=== PATIENT | female | born 1950 | race American Indian/Alaskan Native ===

== ENCOUNTER 2017-02-13 14:35 | Outpatient (CLI) | payer OTHER ==
--- NOTE | 2017-02-13 15:52 | Nuclear Medicine Report ---
Ventilation/perfusion lung scan. History: Breast or failure. Findings: Ventilation study is normal. The perfusion scan demonstrates no evidence of segmental or subsegmental defects. The technical quality of the study is decreased related to the patient's body habitus and inability to raise her arms in the supine position resulting in artifact on several images. Impression: Low probability of embolic disease with above-noted technical limitations.
== END 2017-02-13 14:36 | disposition home or self-care (01) ==
LOC: NM 14:35
PROVIDERS: ATTEND Internal Medicine Critical Care Medicine
DX: J96.11 Chronic respiratory failure with hypoxia (principal); J98.4 Other disorders of lung; I10 Essential (primary) hypertension; E11.9 Type 2 diabetes mellitus without complications; E78.5 Hyperlipidemia, unspecified; F32.9 Major depressive disorder, single episode, unspecified; F41.9 Anxiety disorder, unspecified
CPT/HCPCS: 78582; A9540; A9558

== ENCOUNTER 2017-04-04 10:59 | Outpatient (CLI) | payer OTHER | END 2017-04-04 11:00 | disposition home or self-care (01) | LOC: ECHO 10:59 | PROVIDERS: ATTEND Internal Medicine Critical Care Medicine | DX: I07.1 Rheumatic tricuspid insufficiency (principal); I27.2 Other secondary pulmonary hypertension; I51.7 Cardiomegaly; G47.33 Obstructive sleep apnea (adult) (pediatric); R09.02 Hypoxemia; J98.4 Other disorders of lung; E11.9 Type 2 diabetes mellitus without complications; I10 Essential (primary) hypertension; E78.5 Hyperlipidemia, unspecified | CPT/HCPCS: 93306 ==